=== PATIENT | male | born 1950 | race Caucasian/White ===

== ENCOUNTER 2017-06-28 16:42 | Emergency (ER) | payer MEDICARE ==
[~2017-06-28] VITALS: Ht 185.4 cm; Wt 96.5 kg
[~2017-06-28 16:42] MED LIST: ALBU6.7H INH; ALBU8I INH; ASPI81TA45 PO; CARD120T4 PO; CHLOR25 PO; METO10TA PO; ONDA4 PO; OXYC20 PO; PANT20 PO; PERC10TA27 PO; RESV50CA PO; RESVTAB PO; TAB-TAB PO; TERA2CAP3 PO; TEST200I13 IM; VALI10TA PO
[2017-06-28 16:45] VITALS: BP 147/90; PULSE 120; RESP 24; TEMP 99; O2SAT 94
[2017-06-28] MEDS ORDERED: SODIUM CHLORIDE 0.9% FLUSH 10 ML FLUSH IVF PRN (17:00)
[2017-06-28] MEDS ORDERED: RESP: ALBUTEROL 2.5 MG/IPRATROPIUM 0.5 MG NEB (SCH) INH ONE (17:00)
[2017-06-28] MEDS ORDERED: methylPREDNISolone SOD SUCC 125 MG/2 ML VIAL IV PUSH ONE (17:00)
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
[2017-06-28 17:32] LABS: AUTOMATED NEUTROPHIL # 10.5 TH/MM3 (1.8-7.7); BASOPHIL # 0.2 TH/MM3 (0-0.2); BASOPHIL % 1.4 % (0.0-2.0); EOSINOPHIL % 0.1 % (0.0-4.0); HEMATOCRIT 53.7 % (39.0-51.0); HEMOGLOBIN 18.6 GM/DL (13.0-17.0); LYMPH % 4.8 % (9.0-44.0); LYMPHOCYTE # 0.6 TH/MM3 (1.0-4.8); MEAN CORPUSCULAR HEMOGLOBIN 31.1 PG (27.0-34.0); MEAN CORPUSCULAR HGB CONC 34.5 % (32.0-36.0); MEAN PLATELET VOLUME 9.6 FL (7.0-11.0); MONO % 5.3 % (0.0-8.0); MONOCYTE # 0.6 TH/MM3 (0-0.9); NEUT % 88.4 % (16.0-70.0); PLATELET COUNT 231 TH/MM3 (150-450); RED BLOOD COUNT 5.97 MIL/MM3 (4.50-5.90); RED CELL DISTRIBUTION WIDTH 14.3 % (11.6-17.2); WHITE BLOOD COUNT 11.9 TH/MM3 (4.0-11.0)
[2017-06-28 17:38] LABS: CHLORIDE 99 MEQ/L (98-107); SODIUM (NA) 131 MEQ/L (136-145)
[2017-06-28 17:41] LABS: CALCIUM 8.3 MG/DL (8.5-10.1)
[2017-06-28 17:42] LABS: BICARBONATE 22.4 MEQ/L (21.0-32.0); BLOOD UREA NITROGEN 9 MG/DL (7-18); GLUCOSE,RANDOM 147 MG/DL (74-106)
[2017-06-28 17:45] LABS: GLOMERULAR FILTRATION RATE 67 ML/MIN (>89)
[2017-06-28] MEDS ORDERED: methylPREDNISolone SOD SUCC 40 MG/1 ML VIAL IV PUSH ONE (17:45)
[2017-06-28 17:52] LABS: INTERNATIONAL NORMALIZED RATIO 1.1 RATIO; PROTHROMBIN TIME - PATIENT 10.9 SEC (9.8-11.6)
[2017-06-28 18:00] VITALS: BP 151/83; PULSE 90; RESP 20; TEMP 98.7; O2SAT 94
[2017-06-28 18:04] LABS: D-DIMER 0.24 MG/L FEU (0.00-0.50)
[2017-06-28] MEDS ORDERED: DIAZ10TA PO (18:23)
[2017-06-28] MEDS ORDERED: TERA2CAP3 PO (18:23)
[2017-06-28] MEDS ORDERED: PERC10TA27 PO (18:23)
[2017-06-28] MEDS ORDERED: PANT20 PO (18:23)
[2017-06-28] MEDS ORDERED: ALBU6.7H INH (18:23)
[2017-06-28] MEDS ORDERED: SODIUM CHLOR 0.9% 1000 ML INJ 1,000 ML IV ONE (18:30)
[2017-06-28 18:37] VITALS: BP 128/81; PULSE 100; RESP 20; O2SAT 95
[2017-06-28] MEDS ORDERED: PRED10PA2 PO (19:13)
[2017-06-28] MEDS ORDERED: AZIT250T3 PO (19:13)
[2017-06-28 19:14] LABS: TROPONIN I LESS THAN 0.02 NG/ML (0.02-0.05)
[2017-06-28] MEDS ORDERED: IOHEXOL 350 MG/ML 10 ML VIAL (for RAD DIAG) IVCONTRAST ONE (19:15)
[2017-06-28 19:30] VITALS: BP 132/78; PULSE 96; RESP 18; O2SAT 97
--- NOTE | 2017-06-28 19:58 | RADRPT ---
EXAM DATE/TIME: 06/28/2017 19:13 [facility] COMPARISON: No previous studies available for comparison. INDICATIONS : Shortness of breath X 5 days IV CONTRAST: 92 cc Omnipaque 350 (iohexol) IV RADIATION DOSE: 16.98 CTDIvol (mGy) MEDICAL HISTORY : Hypertension. Pancreatitis. Hernia, hiatal. SURGICAL HISTORY : Splenectomy. Partial pancreas and liver removal ENCOUNTER: Initial ACUITY: 4 - 6 days PAIN SCALE: 0/10 LOCATION: chest TECHNIQUE: Volumetric scanning of the chest was performed using a pulmonary embolism protocol MIP images were re constructed. Using automated exposure control and adjustment of the mA and/or kV according to patien t size, radiation dose was kept as low as reasonably achievable to obtain optimal diagnostic quality images. DICOM format image data is available electronically for review and comparison. Follow-up recommendations for detected pulmonary nodules are based at a minimum on nodule size and pa tient risk factors according to Fleischner Society Guidelines. FINDINGS: The lungs are clear without infiltrate, nodule, or mass except for slight scarring right lower lobe p osteriorly. There is no evidence for PE for technique.There is no pleural effusion. No appreciable p athological adenopathy is seen within the mediastinum. Multiple cysts are present in the liver the la rgest measures 2.1 cm. There is evidence for prior splenectomy with multiple regenerating splenic nod ules the largest measures 5.4 cm in left upper quadrant. Small hiatal hernia is seen. Coronary artery calcifications are seen typically seen with CAD and need to be evaluated clinically. CONCLUSION: Chronic and benign changes without evidence for PE. Miah Erickson MD on June 28, 2017 at 19:54 Board Certified Radiologist. This report was verified electronically.
--- NOTE | 2017-06-28 20:21 | PD ---
Physical Exam Time Seen by Provider: 20:[address] Garry José left this patient with me to check the results of the CT pulmonary angiogram and likely discharge if normal. Data Data Last Documented VS Vital Signs Date Time Temp Pulse Resp B/P (MAP) Pulse Ox O2 Delivery O2 Flow Rate FiO2 06/28/17 18:37 100 20 128/81 (97) 95 Nasal Cannula 2.00 06/28/17 18:00 98.7 Orders Orders Complete Blood Count With Diff (06/28/17 17:00) Basic Metabolic Panel (Bmp) (06/28/17 17:00) B-Type Natriuretic Peptide (06/28/17 17:00) D-Dimer (06/28/17 17:00) Act Partial Throm Time (Ptt) (06/28/17 17:00) Prothrombin Time / Inr (Pt) (06/28/17 17:00) Ckmb (Isoenzyme) Profile (06/28/17 17:00) Influenzae A/B Antigen (06/28/17 17:00) Iv Access Insert/Monitor (06/28/17 17:00) Electrocardiogram (06/28/17 17:00) Ecg Monitoring (06/28/17 17:00) Oximetry (06/28/17 17:00) Oxygen Administration (06/28/17 17:00) Chest, Single Ap (06/28/17 17:00) Sodium Chloride 0.9% Flush (Ns Flush) (06/28/17 17:00) Methylprednisolone So Succ Inj (Solumedr (06/28/17 17:00) Albuterol-Ipratropium Neb (Duoneb Neb) (06/28/17 17:00) Methylprednisolone So Succ Inj (Solumedr (06/28/17 17:45) CKMB (06/28/17 17:00) CKMB% (06/28/17 17:00) Ct Pulmonary Angiogram (06/28/17 ) Sodium Chlor 0.9% 1000 Ml Inj (Ns 1000 M (06/28/17 18:30) Troponin I (06/28/17 17:00) Iohexol 350 Inj (Omnipaque 350 Inj) (06/28/17 19:15) Labs Laboratory Tests Test 06/28/17 17:00 White Blood Count 11.9 TH/MM3 Red Blood Count 5.97 MIL/MM3 Hemoglobin 18.6 GM/DL Hematocrit 53.7 % Mean Corpuscular Volume 90.0 FL Mean Corpuscular Hemoglobin 31.1 PG Mean Corpuscular Hemoglobin Concent 34.5 % Red Cell Distribution Width 14.3 % Platelet Count 231 TH/MM3 Mean Platelet Volume 9.6 FL Neutrophils (%) (Auto) 88.4 % Lymphocytes (%) (Auto) 4.8 % Monocytes (%) (Auto) 5.3 % Eosinophils (%) (Auto) 0.1 % Basophils (%) (Auto) 1.4 % Neutrophils # (Auto) 10.5 TH/MM3 Lymphocytes # (Auto) 0.6 TH/MM3 Monocytes # (Auto) 0.6 TH/MM3 Eosinophils # (Auto) 0.0 TH/MM3 Basophils # (Auto) 0.2 TH/MM3 CBC Comment DIFF FINAL Differential Comment Prothrombin Time 10.9 SEC Prothromb Time International Ratio 1.1 RATIO Activated Partial Thromboplast Time 25.7 SEC D-Dimer Quantitative (PE/DVT) 0.24 MG/L FEU Blood Urea Nitrogen 9 MG/DL Creatinine 1.10 MG/DL Random Glucose 147 MG/DL Calcium Level 8.3 MG/DL Sodium Level 131 MEQ/L Potassium Level 3.7 MEQ/L Chloride Level 99 MEQ/L Carbon Dioxide Level 22.4 MEQ/L Anion Gap 10 MEQ/L Estimat Glomerular Filtration Rate 67 ML/MIN Total Creatine Kinase 2517 U/L Creatine Kinase MB 5.3 NG/ML Creatine Kinase MB % 0.2 % Troponin I LESS THAN 0.02 NG/ML B-Type Natriuretic Peptide 29 PG/ML [facility] Medical Record Reviewed: Yes Supervised Visit with [facility]NE[facility]: No Interpretation(s) The CT angiogram shows chronic and benign changes without evidence for pulmonary embolus. The chest x-ray shows no acute cardiopulmonary disease. The CBC shows a white count of 11.9 with a hemoglobin of 18.6 and hematocrit of 53.7. The neutrophils are 88%. The basic metabolic profile shows a GFR of 67, glucose 147 with calcium 8.3 and sodium 131 but is otherwise unremarkable. The CK is 2517 and the MB fraction is 5.3 but the percent CK-MB is 0.2. The troponin I is normal. The d-dimer is normal and the coagulation profile is normal. The influenza A/B antigen is negative for flu a and flu B antigen. Differential Diagnosis Viral syndrome, flu syndrome, pneumonia, bronchitis, bronchospasm, electrolyte disorder, anemia, renal insufficiency, pulmonary embolus, tobacco abuse Narrative Course There is no evidence of pulmonary embolus both by d-dimer which is normal and by CT angiogram. He does have a bronchitis with bronchospasm. The lungs show wheezes bilaterally. The patient was prescribed an albuterol inhaler but he has thus far refused to use it. He also refuses to quit smoking. Diagnosis Primary Impression: Bronchitis with bronchospasm Additional Impressions: Tobacco abuse Viral syndrome Noncompliance with medications Additional Instruction: Fill the medications and take the medications that were prescribed by your primary care physician. You need to quit smoking. Follow-up with your primary care physician next week. Med/Other Pt SpecificInfo: No Change to Meds Disposition: 01 DISCHARGE HOME Condition: Stable Alex Dorado MD Jun 28, 2017 20:21
[2017-06-28 21:05] VITALS: BP 132/74; PULSE 96; RESP 18; O2SAT 96
--- NOTE | 2017-06-29 13:06 | EKG ---
Date Performed: 06/28/2017 Time Performed: 16:44:12 PTAGE: 66 years EKG: SINUS TACHYCARDIA NONSPECIFIC T-WAVE CHANGE ABNORMAL ECG NO PREVIOUS TRACING DOCTOR: Mekhi Martino Interpretating Date/Time 06/29/2017 13:05:34
== END 2017-06-28 21:10 | disposition home or self-care (01) ==
LOC: PHED 16:42
DX: J40 Bronchitis, not specified as acute or chronic (principal); B34.9 Viral infection, unspecified; R00.0 Tachycardia, unspecified; R94.31 Abnormal electrocardiogram [ECG] [EKG]; E78.00 Pure hypercholesterolemia, unspecified; I10 Essential (primary) hypertension; Z87.19 Personal history of other diseases of the digestive system; Z72.0 Tobacco use; Z91.14 Patient's other noncompliance with medication regimen
CPT/HCPCS: 71045; 71275; 80048; 82550; 82552; 83880; 84484; 85025; 85379; 85610; 85730; 87804; 93005; 94664; 96361; 96374; 99285; J2920; J7030; Q9967; J2930